=== PATIENT | male | born 1960 | race Asian ===

== ENCOUNTER 2021-09-16 15:33 | Emergency (ER) | payer MEDICAID, SELFPAY ==
[2021-09-16] VITALS (14 sets, daily range): BP systolic 131–148; BP diastolic 82–91; PULSE 56–74; RESP 10–22; TEMP 36.1; O2SAT 97–100
--- NOTE | ~2021-09-16 | CT_ITS ---
EXAMINATION: CT chest abdomen pelvis w con EXAM DATE: 09/16/2021 17:17 INDICATION: Lightheadedness. Abdominal pain and nausea. Abnormal chest x-ray with airspace disease veliz spected. TECHNIQUE: Spiral CT of the chest, abdomen and pelvis was performed following intravenous injection o f 100 mL Omnipaque 350. Axial, coronal and sagittal images chest, abdomen and pelvis were reviewed. Coronal maximum intensity pixel images of chest reviewed. The dose-length product (DLP) for this ex amination was 563.70 mGy-cm. The exposure was tailored according to patient size (auto mA exposure c ontrol), and iterative reconstruction (ASIR) was used as additional dose reduction technique. There is no prior study for comparison. FINDINGS: CHEST: The lungs are clear. There are no pleural or pericardial effusions. Tracheobronchial tree is patent. There is no mediastinal, hilar or axillary lymphadenopathy. There is no pneumothorax. Heart normal in size. There is mild coronary arterial calcification, arterial sclerosis. ABDOMEN PELVIS: The liver, spleen, adrenal glands and pancreas are unremarkable. There are cholecyst ectomy clips. Portal and splenic veins are patent. Kidneys enhance symmetrically. There is no hydr onephrosis. The prostate is unremarkable. The bladder is unremarkable. There is no retroperitonea l or pelvic lymphadenopathy. The appendix is normal. The stomach and small bowel are unremarkable. There is moderate amount of c olonic stool. No free intraperitoneal gas. There are no osteoblastic or osteolytic lesions identi fied. IMPRESSION: 1. No acute chest, abdomen or pelvis findings. 2. Moderate colonic stool. Reviewed, dictated and finalized at location G.
--- NOTE | ~2021-09-16 | XR_ITS ---
EXAMINATION: XR chest 1V portable INDICATION: Abdominal pain and altered mental status TECHNIQUE: Portable AP chest at 1621 hours COMPARISON: None available FINDINGS: There are minimal opacities of the mid and lower lung zones. No pleural effusion or pneumot horax is identified. The cardiomediastinal silhouette is normal. IMPRESSION: 1. Airspace opacities of the mid and lower lung zones, consistent with atelectasis versus pneumonia. Reviewed, dictated and finalized at location B. IMPRESSION: 1. Airspace opacities of the mid and lower lung zones, consistent with atelecta sis versus pneumonia.
--- NOTE | 2021-09-16 15:54 | PC.NURSE ---
Addendum entered by Judie Aviles RN 09/16/21 15:55: [employer] AND [employer]URED IN [facility]E IN ER [facility] CHARGE NURSE DESK. Original Note: PT'S MONEY FROM HIS WALLET WAS COUNTED IN PRESENCE OF PT, DEBI Larose CHARGE NURSE AND MYSELF. MONEY WAS PLACED IN VALUABLES IN
--- NOTE | 2021-09-16 16:09 | ECG_ITS ---
Measurements Intervals [place] Rate: 53 P: 34 RI: 154 QRS: 17 QRSD: 89 T: -2 QT: 453 QTc: 427 Interpretive Statements SINUS BRADYCARDIA ST ELEVATION, CONSIDER EARLY REPOLARIZATION BORDERLINE ECG NO PREVIOUS ECG AVAILABLE FOR COMPARISON Electronically Signed On 09-17-2021 16:12:17 CDT by Artie Warren M.D.
[2021-09-16] MEDS: SODIUM CHLORIDE 0.9% IV 1,000 ML 999 ML IV CONT (16:20)
[2021-09-16 16:26] LABS: Basophils Absolute Auto 0.1 K/mm3 (0.0-0.1); Basophils Percent Auto 0.8 % (0.2-1.2); Eosinophils Absolute Auto 0.2 K/mm3 (0-0.3); Eosinophils Percent Auto 2.2 % (0-4.4); Hematocrit 43.7 % (42.0-52.0); Hemoglobin 13.7 g/dL (14.0-18.0); Immature Granulocyte Absolute 0.02 K/mm3 (0.00-0.031); Immature Granulocyte Percent A 0.2 % (0-0.5); Lymphocytes Absolute Auto 2.25 K/mm3 (0.9-3.2); Lymphocytes Percent Auto 25.3 % (18.3-44.2); Mean Corpuscular HGB Conc 31.4 g/dl (32-36); Mean Corpuscular Hemoglobin 28.5 pg (26-34); Mean Corpuscular Volume 90.9 fl (80-100); Mean Platelet Volume 10.7 fl (7.4-10.4); Monocytes Absolute Auto 0.4 K/mm3 (0.1-0.6); Monocytes Percent Auto 4.5 % (2.6-8.5); Platelet Count Result 174 k/mm3 (150-375); Red Blood Count 4.81 M/mm3 (4.6-6.20); Red Cell Distribution Width 13.6 % (11.5-14.5); White Blood Count 8.9 K/mm3 (4.5-10.0)
[2021-09-16 16:29] LABS: Alveolar/Arterial O2 Gradient 29.2 mmHg; Carboxyhemoglobin 0.1 % THb (0-2.0); Device ROOM AIR; Fractional Inspired Oxygen 21 %; HCO3 ABG 23.5 mEq/l (22.0-26.0); Methemoglobin ABG 0.2 %THb (0-1.5); Modified Allen's Test Pass; Oxygen Saturation ABG 96.2 % (95.0-100.0); Oxyhemoglobin 95.6 % THb (90.0-100.0); PCO2 ABG 34.7 mmHg (35.0-45.0); PO2 FiO2 Ratio Arterial Blood 3.76 %; Reduced Hemoglobin 4.1 %THb (0-5.0); Site Drawn LEFT RADIAL; Total Hemoglobin 14.1 g/dL (12.0-18.0); pH ABG 7.448 (7.350-7.450)
[2021-09-16 16:35] LABS: Prothrombin Time 12.6 Seconds (11.1-14.7)
[2021-09-16 16:39] LABS: Ammonia < 9 umol/L (9-30)
[2021-09-16 16:40] LABS: Alanine Aminotransferase 15 U/L (4-50); Albumin Level 4.1 g/dL (3.5-5.1); Alkaline Phosphatase 53 U/L (38-126); Anion Gap 8 mmol/L (8-16); Aspartate Amino Transferase 25 U/L (17-59); Bilirubin,Total 0.7 mg/dL (0.2-1.3); Blood Urea Nitrogen 22 mg/dL (9-20); Calcium 8.4 mg/dL (8.4-10.2); Carbon Dioxide 24 mmol/L (22-30); Chloride 108 mmol/L (98-107); Estimated CRCL calculation 57 ml/min; Estimated Glomerular Filt Rate > 60; Glucose 94 mg/dL (65-110); Lactic Acid Reflex 2.3 mmol/L (0.7-2.1); Potassium 3.4 mmol/L (3.4-5.0); Sodium 140 mmol/L (137-145)
[2021-09-16 16:49] LABS: Troponin I < 0.012 ng/mL (0.000-0.034)
--- NOTE | 2021-09-16 17:47 | ED.GENADULT ---
HPI - General Adult General Chief complaint: Altered Mental Status Stated complaint: ABD pain, ALOC Time Seen by Provider: 09/16/21 16:07 Source: patient Mode of arrival: EMS Limitations: no limitations History of Present Illness HPI narrative: 61-year-old with no major medical problems here with complaints of lower abdominal pain. 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 He denies any nausea, vomiting. No chest pain or shortness of breath . No blood in the stool or in the urine. Onset (ago): hour(s) (1) Location: abdomen Radiation: non-radiation Severity: moderate Quality: aching Pain Consistency: now resolved Relieving factors: none Exacerbating factors: none Associated symptoms: denies other symptoms Related Data Allergies Allergy/AdvReac Type Severity Reaction Status Date / Time No Known Allergies Allergy Verified 09/16/21 17:46 Review of Systems Review of Systems: All systems reviewed & are unremarkable except as noted in HPI and below Constitutional: Constitutional: Reports no additional constitutional complaints Eyes: Eyes: Reports no additional eye complaints ENT: Reports system reviewed and no additional complaints, except as documented Cardiovascular: Cardiovascular: Reports no additional cardiovascular complaints Respiratory: Respiratory: Reports no additional respiratory complaints Gastrointestinal: Gastrointestinal: Reports as per HPI Musculoskeletal: Musculoskeletal: Reports no additional musculoskeletal complaints Integumentary/Breasts: Skin/Breast: Reports system reviewed and no additional complaints, except as docu Neurologic: Reports system reviewed and no additional complaints, except as documented Exam Narrative: GENERAL: Well-appearing, well-nourished, and in no acute distress. HEAD: Normocephalic, atraumatic. EYES: PERRLA and EOMI. NECK: Supple. CHEST: Clear to auscultation. No respiratory distress. HEART: Regular rate and rhythm. No murmur heard. Normal peripheral pulses. ABDOMEN: Soft, midline surgical scar present below the umbilicus, nontender, nondistended, normal active bowel sounds. EXTREMITIES: Normal range of motion. No edema. SKIN: Warm, dry, no rash. NEURO: No focal deficits. Alert and oriented x3. PSYCH: Normal mood and affect. Course Course Emergency Course: Patient remained pain-free while he was here in the ER. Informed him about his lab work, CT findings. He states he is feeling better Vital Signs Vital signs: Vital Signs Temperature 36.1 C L 09/16/21 15:30 Pulse Rate 60 09/16/21 15:30 Respiratory Rate 22 H 09/16/21 15:30 Blood Pressure 131/88 09/16/21 15:30 Pulse Oximetry 98 09/16/21 15:30 Temperature 36.1 C L 09/16/21 15:30 Pulse Rate 66 09/16/21 17:31 Respiratory Rate 18 09/16/21 17:31 Blood Pressure 148/91 H 09/16/21 17:31 Pulse Oximetry 98 09/16/21 17:31 Medical Decision Making MDM Narrative Medical decision making narrative: 61-year-old with sudden onset of lower abdominal pain associated with mild diaphoresis and syncopal episode will do a CT of his abdomen to make sure he has no aneurysm. Also do routine lab work. Vital Signs Vital Signs: Vital Signs Temperature 36.1 C L 09/16/21 15:30 Pulse Rate 60 09/16/21 15:30 Respiratory Rate 22 H 09/16/21 15:30 Blood Pressure 131/88 09/16/21 15:30 Pulse Oximetry 98 09/16/21 15:30 Temperature 36.1 C L 09/16/21 15:30 Pulse Rate 66 09/16/21 17:31 Respiratory Rate 18 09/16/21 17:31 Blood Pressure 148/91 H 09/16/21 17:31 Pulse Oximetry 98 09/16/21 17:31 Lab Data Result diagrams: 09/16/21 16:20 09/16/21 16:20 Labs: Lab Results 09/16/21 09/16/21 09/16/21 Range/Units 16:15 16:20 16:20 WBC 8.9 (4.5-10.0) K/mm3 RBC 4.81 (4.6-6.20) M/mm3 Hgb 13.7 L (14.0-18.0) g/dL Hct 43.7 (42.0-52.0) % MCV 90.9
[2021-09-16 19:24] LABS: Reflex Lactic Acid Yes or No Add Lactic
== END 2021-09-16 18:45 | disposition home or self-care (01) ==
PROVIDERS: Emergency Provider Family Medicine
DX: K59.00 Constipation, unspecified (principal); R55 Syncope and collapse; R10.30 Lower abdominal pain, unspecified; R91.8 Other nonspecific abnormal finding of lung field; R00.1 Bradycardia, unspecified
CPT/HCPCS: 36415; 36600; 71045; 71260; 74177; 80053; 82140; 82375; 82805; 83050; 83605; 84484; 85025; 85610; 93005; 96360; 99284; J7030; Q9967